=== PATIENT | female | born 1960 | race Two or more races ===

== ENCOUNTER 2025-01-11 09:25 | Day surgery (SDC) | payer OTHER, MEDICAID, SELFPAY ==
[2025-01-07 14:53] VITALS: BMI 25.7
[2025-01-11] VITALS (12 sets, daily range): BP systolic 115–144; BP diastolic 60–75; PULSE 52–68; RESP 12–16; TEMP 37.1–37.2; O2SAT 95–100; BMI 26.0
[2025-01-11] MEDS: RINGERS LACTATED 1000 ML 1,000 ML 60 ML IV (10:03)
--- NOTE | 2025-01-11 10:38 | CHAP ---
Prayed with patient before the procedure.
--- NOTE | 2025-01-11 11:50 | SUR.PHASEII ---
1135: Pt received in [facility] via [facility]. Report from Ashley FARMER. Pt sleepy. Easily aroused with eye opening then will drift back to sleep. Resp even, unlabored. VS stable. Denies pain.
--- NOTE | 2025-01-11 12:23 | SUR.PHASEII ---
1200: Pt more awake, alert. Resp even, unlabored. VS stable. Denies pain. Sitting up tolerating po fluids with no difficulty swallowing and no n/v. 1215: Pt fully awake, oriented x3. Pt dressed. Assisted to transport chair. Ambulation steady. Awaiting transportation. 1225: Pt assisted to restroom to void. Ambulation steady.
--- NOTE | 2025-01-11 12:50 | SUR.PHASEII ---
1242: Transportation available. Pt and sister stated understanding of discharge instructions. Pt discharged from [facility] in stable condition.
== END 2025-01-11 12:42 | disposition home or self-care (01) ==
PROVIDERS: PCP Specialist; Referring Provider Specialist; Visit Provider Specialist
PROC: 0DJD8ZZ Inspection of Lower Intestinal Tract, Via Natural or Artificial Opening Endoscopic (ICD-10-PCS; CPT 45378; principal; 2025-01-11 10:45)
DX: Z12.11 Encounter for screening for malignant neoplasm of colon (principal); K57.30 Diverticulosis of large intestine without perforation or abscess without bleeding; K64.3 Fourth degree hemorrhoids
CPT/HCPCS: G0121; J1200; J2250; J3010; J7120